=== PATIENT | male | born 1980 | race Caucasian/White ===

== ENCOUNTER 2016-08-19 19:05 | Emergency (ER) | payer MEDICAID ==
[~2016-08-19] VITALS: Ht 167.6 cm; Wt 72.5 kg
[2016-08-19 19:17] VITALS: Ht 167.6 cm; Wt 72.5 kg
[2016-08-19] MEDS ORDERED: TETRACAINE 0.5% 4 ML OPH LEFT EYE ONE (20:00)
[2016-08-19] MEDS ORDERED: FLUORESCEIN STRIP LEFT EYE ONE (20:00)
[2016-08-19] MEDS ORDERED: OPHTHALMIC IRRIG SOLUTION 120 ML LEFT EYE ONE (20:00)
[2016-08-19] MEDS ORDERED: IBUP-1542 PO (20:14)
[2016-08-19] MEDS ORDERED: ACET1TAB40 PO (20:14)
[2016-08-19] MEDS ORDERED: ERYTOPOI LEFT EYE (20:15)
--- NOTE | 2016-08-19 20:23 | ERD ---
ER Documentation Chief Complaint Date/Time DATE: 08/19/16 TIME: 20:17 Chief Complaint left eye pain, redness, no vision changes x 1 day HPI This 36-year-old male complains of left eye discomfort starting today. He does work around dust and tile particles . When driving home he did experience some irritation in his left eye. He feels irritation and foreign body sensation in the left upper lid. Visual changes or visual field deficits, fevers, discharge. There was no history of projectile or pain while working. Denies contact lens use. ROS All systems reviewed and are negative except as per history of present illness. Medications Home Meds Active Scripts Erythromycin* (Erythromycin* Ophthalmic) 1 Applic Oint, 1 APPLIC LEFT EYE QID for 7 Days, EA Prov:INES WISE MD 08/19/16 Acetaminophen with Codeine (Acetaminophen-Cod #3 Tablet) 1 Each Tablet, 1 TAB PO Q6H Y for PAIN, #7 TAB Prov:INES WISE MD 08/19/16 Ibuprofen* (Motrin*) 600 Mg Tab, 600 MG PO Q6, #20 TAB Prov:INES WISE MD 08/19/16 PMhx/Soc Medical and Surgical Hx: pt denies Medical Hx History of Surgery: Yes (laser eye, both eyes) Hx Alcohol Use: No Hx Substance Use: No Hx Tobacco Use: No Smoking Status: Never smoker Physical Exam Vitals Vital Signs Date Time Temp Pulse Resp B/P Pulse Ox O2 Delivery O2 Flow Rate FiO2 08/19/16 19:17 98.0 66 17 121/73 99 Physical Exam Const: [] Alert, [id number]. Head: Atraumatic Eyes: Normal Conjunctiva. Visual acuity slightly diminished but possibly due to irritation in no acute abnormalities which are significant. There is no appreciated foreign body. Fluorescein test is negative. Patient had some relief after irrigation and tetracaine. ENT: Normal External Ears, Nose and Mouth. Neck: Full range of motion..~ No meningismus. Resp: Clear to auscultation bilaterally Cardio: Regular rate and rhythm, no murmurs Abd: Soft, non tender, non distended. Normal bowel sounds Skin: No petechiae or rashes Back: No midline or flank tenderness Ext: No cyanosis, or edema Neur: Awake and alert Psych: Normal Mood and Affect Results 24 hrs Current Medications Medications (Trade) Dose Ordered Sig/Prabhu Route PRN Reason Start Time Stop Time Status Last Admin Dose Admin Tetracaine HCl (Tetracaine 0.5% Steri-Unit Bhargavi) 1 drop ONCE ONCE LEFT EYE 08/19/16 20:00 08/19/16 20:01 DC 08/19/16 19:48 Irrigating Solution (Eye Wash) 1 applic ONCE ONCE LEFT EYE 08/19/16 20:00 08/19/16 20:01 DC 08/19/16 19:48 Fluorescein Sodium (Asxfd-Q-[id number]) 1 strip ONCE ONCE LEFT EYE 08/19/16 20:00 08/19/16 20:01 DC 08/19/16 19:48 Ibuprofen (Motrin) 600 mg ONCE ONCE PO 08/19/16 20:30 08/19/16 20:31 Acetaminophen/ Codeine Phosphate (Tylenol No.3) 1 tab ONCE ONCE PO 08/19/16 20:30 08/19/16 20:31 Procedures/MDM Patient has left eye irritation while driving today possibly subclinical conjunctival foreign body. There is no evidence of ulcerations, dendritic lesions, threats to vision, orbital cellulitis, signs or symptoms to suggest acute glaucoma. Patient was discharged home with a prescription of Tylenol 3, ibuprofen instructions for ophthalmology recheck tomorrow for persistent symptoms. She was referred to [facility] but vitamin C may need authorization from his primary doctor. She will return to the ER for new or worsening symptoms. The patient was stable with no new complaints during the ER course. Clinically, there is no current evidence to suggest meningitis, sepsis, acute abdomen, pneumonia, acute coronary syndrome, pulmonary embolism, or any other emergent condition appearing to require further evaluation or hospitalization. The patient should certainly return for any new or worsening symptoms per the aftercare instructions. They should otherwise follow-up with her primary care doctor for reevaluation this week. Departure Diagnosis: Primary Impression: Eye problem Condition: Stable Patient Instructions: Conjunctivitis Caused by Irritation Referrals: [facility] Hours: Mon - Fri 9:00 AM - 5:00 PM Additional Instructions: EXAMEN NORMAL. POSIBLEMENTE INFLAMMADO DE KENYA . RECOMIENDO YONI CON SPECIALISTA MANANA PARA MAS DOLOR. Va al baca doctor/ specialista para mas evaluacon en el proximo semana. posiblemente necesita autorizado de baca doctor primario para specialista. Regresa para fiebre, o mas o nueva simptomas. INES WISE MD Aug 19, 2016 20:23
[2016-08-19] MEDS ORDERED: ACETAMINOPHEN/CODEINE #3 TAB PO ONE (20:30)
[2016-08-19] MEDS ORDERED: IBUPROFEN 600 MG TAB PO ONE (20:30)
== END 2016-08-19 20:42 | disposition home or self-care (01) ==
LOC: FTE 19:05
DX: H57.8 Other specified disorders of eye and adnexa (principal)
CPT/HCPCS: Z7610 ×3; 99284

== ENCOUNTER 2017-09-08 05:39 | Emergency (ER) | END 2017-09-08 08:52 | disposition home or self-care (01) ==